=== PATIENT | male | born 1970 | race Two or more races ===

== ENCOUNTER 2019-02-01 00:06 | Inpatient (IN) | payer OTHER ==
[~2019-02-01] VITALS: Ht 172.7 cm; Wt 74.9 kg
[~2019-02-01 00:06] MED LIST: AMOCLA875 PO; CALCA500CH PO; CHLO25 PO; CHLO5 PO; FAMO20 PO; GUAPHELA PO; NAPR550 PO; NAUSEA MED; ONDA8 PO; PHENY100ER PO; PROM25 PO; RXPROM25S PR; TRAZ50 PO; ZOLP5 PO; ZOLP6.25 PO
[2019-02-01 02:13] LABS: BASOPHILS ABSOLUTE AUTO 0.03 K/mm3 (0.00-0.23); BASOPHILS PERCENT AUTO 1 % (0-2); EOSINOPHILS ABSOLUTE AUTO 0.05 K/mm3 (0.00-0.68); EOSINOPHILS PERCENT AUTO 1 % (0-6); Hematocrit 51.6 % (37.0-53.0); Hemoglobin 17.2 g/dL (13.5-17.5); IMMATURE GRAN ABSOLUTE AUTO 0.02 K/mm3 (0.00-0.10); IMMATURE GRAN PERCENT AUTO 1 % (0-1); LYMPHOCYTES ABSOLUTE AUTO 2.62 K/mm3 (0.84-5.20); LYMPHOCYTES PERCENT AUTO 59 % (21-46); MONOCYTES ABSOLUTE AUTO 0.27 K/mm3 (0.16-1.47); MONOCYTES PERCENT AUTO 6 % (4-13); Mean Corpuscular HGB 31.7 pg (26.0-34.0); Mean Corpuscular HGB Conc 33.3 g/dL (31.5-36.5); Mean Corpuscular Volume 95 fL (80-100); Mean Platelet Volume 8.6 fL (9.1-12.4); NEUTROPHILS ABSOLUTE AUTO 1.43 K/mm3 (1.96-9.15); NEUTROPHILS PERCENT AUTO 32 % (41-73); Platelet Count 157 K/mm3 (150-400); RDW Coefficient Variation 14.2 % (11.7-14.2); RDW Standard Deviation 49.1 fL (35.1-46.3); Red Blood Cell Count 5.43 M/mm3 (4.30-5.90); White Blood Cell Count 4.42 K/mm3 (4.00-11.30)
[2019-02-01 02:27] LABS: International Normalized Ratio 0.98; Prothrombin Time Results 10.4 Sec (9.7-11.5)
[2019-02-01 02:36] LABS: Alanine Aminotransfer (ALT/SGP 53 U/L (12-78); Albumin, Blood 4.4 g/dL (3.4-5.0); Albumin/Globulin Ratio 1.1 (0.8-1.8); Alk Phos 73 U/L (50-136); Anion Gap 6 mmol/L (6-16); Aspartate Aminotrans (AST/SGOT 33 U/L (12-37); Bilirubin, Total 0.3 mg/dL (0.1-1.0); Blood Urea Nitrogen 9 mg/dL (8-24); CO2, Blood 30 mmol/L (21-32); Calcium, Blood 8.7 mg/dL (8.5-10.1); Chloride, Blood 108 mmol/L (98-108); Creatinine, Blood 0.82 mg/dL (0.60-1.20); Globulin, Blood 4.1 g/dL (2.2-4.0); Glomerular Filtration Rate >60 (60-); Glucose, Blood 96 mg/dL (70-99); Potassium, Blood 3.7 mmol/L (3.5-5.5); Sodium, Blood 144 mmol/L (136-145); Total Protein, Blood 8.5 g/dL (6.4-8.2)
[2019-02-01 02:40] LABS: Ethanol (Alcohol), Blood, Med 339 mg/dL
[2019-02-01 04:28] LABS: CHOL/HDL RATIO 4.5; Cholesterol 278 mg/dL (50-200); HDL Cholesterol 62 mg/dL (>39); LDL/HDL RATIO 2.3; Low Density Lipoprotein Chol 141 mg/dL (0-110); Triglycerides 376 mg/dL (30-160); Very Low Density Lipoprot Chol 75 mg/dL (6-32)
--- NOTE | 2019-02-01 10:27 | NUR ---
Upon receiving a spiritual care referral, I visited patient. Patient explains about the inability to use of feel the left side of his body or recall details and memories. Patient is tearful and admits to being afraid. I listen empathically, provide emotional support, a calming presence and prayer. Patient responds well and thanks me for the visit.
--- NOTE | 2019-02-01 10:58 | NUR ---
PATIENT REPORTS THAT HE CANNOT FEEL THE LEFT SIDE OF HIS TONGUE MAKING IT HARD TO REMEMBER NOT TO BITE HIS TONGUE. SMALL DRINKS OF WATER GIVEN AND TOLERATED OK. LEFT SIDE TREMORS OBSERVED TO JCE AND LLE. PATIENT IS ALSO NOW REPORTING LOSS OF VISION IN LEFT EYE AND STATES HE IS ANXIOUS AND HAS NAUSEA. NOTIFIED AND RECEIVED A T.O. FOR ZOFRAN.
--- NOTE | 2019-02-01 11:18 | NUR ---
[facility]SP[facility] PICKED UP PATIENT FOR MRI. PATIENT STABLE UPON TRANSPORT AND AGREEABLE TO CARE.
--- NOTE | 2019-02-01 13:26 | NUR ---
echocardiogram with bubble study is completed
--- NOTE | 2019-02-01 14:13 | NUR ---
PATIENT IS RESTING IN BED WITH EYES CLOSED. NO TREMORS OBSERVED DURING REST. HOB ELEVATED, FREQUENT ROUNDING ONGOING.
--- NOTE | 2019-02-01 18:09 | NUR ---
SHIFT SUMMARY: PATIENT HAS BEEN ALERT TO SELF AND SITUATION THIS SHIFT BUT UNABLE TO RECALL HIS BIRTHDAY OR PLACE OF RESIDENCE. ROMANSH IS PATIENT SECOND LANGUAGE BUT HE IS ABLE TO UNDERSTAND INTERACTIONS WITH NURSING STAFF AND FOR THE MOST PART BUT NEEDS REMINDERS THAT HE IS IN THE HOSPITAL AND IN [place], HE THOUGHT HE WAS IN [facility]. PATIENT REPORT LEFT SIDE WEAKNESS AND NUMBNESS AND HAS WEAK HAND GRASP ON THE LEFT HAND AND IS NOT ABLE TO FULLY LIFT HIS LEFT ARM ABOVE HIS HEAD. LEFT SIDE FACIAL DROOP IS ALSO PRESENT. PATIENT ALSO REPORTS LOSS OF VISION IN LEFT EYE. ST SAW PATIENT TODAY AND ORDERED A SOFT DIET WITH REGUALR FLUIDS AND PATIENT IS TOLERATING IT WELL. FLUIDS WERE ENCOURAGED THROUGHOUT SHIFT. PATIENT C/O NAUSEA ON AND OFF THIS SHIFT AND ZOFRAN WAS GIVEN ORDERED. GIRLFRIEND STOPPED BY THIS MORNING BUT NO OTHER FAMILY IS PRESENT. PATIENT DENIES ANY PAIN AND HAS BEEN RESTING THIS SHIFT IN BED.
--- NOTE | 2019-02-01 19:27 | NUR ---
SHIFT CHANGE ASSESSMENT: PATIENT IS AOX3, PLEASANT AND COOPERATIVE. SITTING WATCHING TV. [place] CITIZEN IS CLEAR DISPITE SECOND LANGUAGE. DENIES ANY PAIN OR DICOMFORT. TELE IN PLACE, RUNNING SINUS PER UX LEAD. LEFT SIDE WEAKNESS SEEMS TO HAVE IMRPOVED, PER DAY SHIFT WAS ONLY ABLE TO LIFT ARM MID WAY AND IS NOW TO RAISE SLIGHTLY ABOVE SHOULDER LEVEL. DORSAL FLEXTION AND EXTENTION IS UNEQUAL RIGHT GREATER THEN LEFT. DID NOT MOVE LEFT FOOT. BUT IS ABLE TO LIFT LEG OFF THE BED AND BACK ON, ABLE TO WALK TO THE BATHROOM WITH SMALL AMOUNT OF GAIT DISTURBANCE WHEN LIFTING HIS FOOT. NOT ABLE TO USE LEFT ARM WELL TO NETWORK ENGINEER ADMINISTRATOR WALKER. SPEECH IS CLEAR, MILD DROOPING OF THE LEFT SIDE. DENIES SWALLOWING PROBLEMS OR ANY OTHER CONCERNS, MILD TREMORS NOTED. WILL CONTINUE TO MONITOR CIWA.
--- NOTE | 2019-02-02 06:27 | NUR ---
SHIFT SUMMARY: PATIENT WAS PLEASANT AND COOPERTIVE ALL NIGHT. HE HAD HIS AND KIDS IN FOR A VISIT FOR A SHORT PERIOD OF TIME. SHORTLY AFTER THAT HE RESTED. HE WAS UP AND DOWN A COUPLE TIMES IN THE NIGHT TO URINATE AND HAD LOOSE STOOLS. EACH TIME HE WAS ABLE TO GET HIM SELF OUT OF BED AND AMBULATE IN THE ROOM. HE STILL GAURDING THE LEFT ARM AND HIS LEFT LEG WITH WEAKNESS AND DECREASED IN ROM. HE SLEPT FOR MOST OF THE NIGHT TILL THIS MORNING WHEN HE WAS ABLE TO WAKE UP THIS AM. HIS CIWA WAS NEGATIVE ALL NIGHT, ONLY TREMORS HE HAD WAS WHEN HE TRIED TO LIFT HIS ARM ABOVE HIS HEAD. THEY RESOLVED WHEN HE MOVED THE ARM DOWN. NO OTHER CHANGES OCCURED THROUGOUT THE NIGHT, WILL REPORT TO DAY SHIFT RN.
--- NOTE | 2019-02-02 11:01 | NUR ---
PT STATES SAME SITUATION HAPPENED 2 YRS AGO. DRINKING BINGE. STROKE LIKE SYMPTOMS. LEFT WEAKNESS. W[facility]. 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 HAS BEEN DOING WELL SINCE THIS WEEK. REPEATED DRINKING BINGE. STROKE LIKE SYMPTOMS. STATES FEELING GOES TO ABSENT ON LEFT SIDE. FACE FROM JUST OUT OF L EYE IS ABSENT. STATES RT VISION NORMAL. LEFT IS TUNNEL VISION AND MUST CONCENTRATE TO FOLLOW PEN AT ALL. ALL FEELING ABSENT FROM JUST OUTSIDE OF EMBILICUS TO L SIDE IS ABSENT. LEFT LEG & FOOT & ARM FEELING ABSENT ALSO. JUST DISTAL FROM CENTER LINE. WILL ADVISE DR WHEN SEE. PT A/O DENIES PAIN. PRESSURE. TIGHTNESS. TALKATIVE. RESPECTFUL. H/R REG, NO MURMER NOTED. PER TELE: NSR AT 61. LUNGS CLEAR, RESP EASY, UNLABORED. ON R.A. BT X4 LAST BM TODAY. VOIDS PER SBA WITH FWW TO BATHROOM. BED IN LOW POSITION, CALL LITE IN REACH. CALLS APPROP.
[2019-02-02] MEDS ORDERED: Prilosec Otc20 MG PO (13:18)
[2019-02-02] MEDS ORDERED: ONDA4ODT MM (13:19)
[2019-02-02] MEDS ORDERED: ASPI81CH PO (13:19)
[2019-02-02] MEDS ORDERED: ATOR80 PO (13:19)
--- NOTE | 2019-02-02 13:21 | NUR ---
PT REQUESTING [facility].
--- NOTE | 2019-02-02 14:14 | NUR ---
IV PULLED INTACT. TELE REMOVED. DISCHARGE REVIEWED WITH PT. HE VERBALIZED UNDERSTANDING OF MEDS AND INSTRUCTIONS. PT WHEELED TO DOOR BY VAISHNAVI. [id number]
== END 2019-02-02 14:17 | disposition home health service (06) | DRG 897 ==
LOC: ER 00:06 → MEDS 05:20 → ENPENDDIS 02-02 12:06 → MEDS 02-02 14:17
PROVIDERS: Emergency Medicine; ADMIT Hospitalist
DX: F10.120 Alcohol abuse with intoxication, uncomplicated (principal); Z76.5 Malingerer [conscious simulation]; R53.1 Weakness; R20.0 Anesthesia of skin; F17.210 Nicotine dependence, cigarettes, uncomplicated; E78.5 Hyperlipidemia, unspecified; Z79.82 Long term (current) use of aspirin; Y90.8 Blood alcohol level of 240 mg/100 ml or more
CPT/HCPCS: 36415; 70496; 70498; 70551; 80053; 80061; 82140; 83036; 85025; 85610; 85730; 92610; 93005; 93010; 93306; 96360-59; 97110; 97116; 97162; 97166; 97530; 99285-25; G0480; J1650; J2060; J2405; J7030; Q9967

== ENCOUNTER → 2020-05-29 | Outpatient (CLI) | payer OTHER ==
[~2020-05-29] MED LIST changes: +ASPI81CH PO; +ATOR80 PO; +ONDA4ODT MM; +Prilosec Otc20 MG PO
== END | disposition home or self-care (01) ==
LOC: LAB EV 18:48 → LAB SHORT 18:48
DX: J02.9 Acute pharyngitis, unspecified (principal); Z20.828 Contact with and (suspected) exposure to other viral communicable diseases
CPT/HCPCS: 87081; U0003

== ENCOUNTER 2021-08-20 08:05 | Emergency (ER) | payer OTHER ==
[~2021-08-20] VITALS: Ht 175.3 cm; Wt 83.9 kg
[2021-08-20] MEDS ORDERED: Hydroxyzine HCl50 MG (08:38)
[2021-08-20] MEDS ORDERED: VENLAFAXINE HC225 MG PO (08:38)
[2021-08-20 09:09] LABS: BASOPHILS ABSOLUTE AUTO 0.02 K/mm3 (0.00-0.23); BASOPHILS PERCENT AUTO 0 % (0-2); EOSINOPHILS ABSOLUTE AUTO 0.05 K/mm3 (0.00-0.68); EOSINOPHILS PERCENT AUTO 1 % (0-6); Hematocrit 41.5 % (37.0-53.0); IMMATURE GRAN ABSOLUTE AUTO 0.02 K/mm3 (0.00-0.10); IMMATURE GRAN PERCENT AUTO 0 % (0-1); LYMPHOCYTES ABSOLUTE AUTO 1.66 K/mm3 (0.84-5.20); LYMPHOCYTES PERCENT AUTO 24 % (21-46); MONOCYTES ABSOLUTE AUTO 0.69 K/mm3 (0.16-1.47); MONOCYTES PERCENT AUTO 10 % (4-13); Mean Corpuscular HGB 30.8 pg (26.0-34.0); Mean Corpuscular HGB Conc 36.1 g/dL (31.5-36.5); Mean Corpuscular Volume 85 fL (80-100); Mean Platelet Volume 9.4 fL (9.1-12.4); NEUTROPHILS ABSOLUTE AUTO 4.36 K/mm3 (1.96-9.15); NEUTROPHILS PERCENT AUTO 64 % (41-73); Platelet Count 94 K/mm3 (150-400); RDW Coefficient Variation 12.1 % (11.7-14.2); RDW Standard Deviation 37.4 fL (35.1-46.3); Red Blood Cell Count 4.87 M/mm3 (4.30-5.90)
[2021-08-20 09:20] LABS: Alanine Aminotransfer (ALT/SGP 42 U/L (12-78); Albumin, Blood 3.9 g/dL (3.4-5.0); Albumin/Globulin Ratio 1.1 (0.8-1.8); Alk Phos 63 U/L (50-136); Anion Gap 8 mmol/L (6-16); Aspartate Aminotrans (AST/SGOT 36 U/L (12-37); Blood Urea Nitrogen 10 mg/dL (8-24); Bun/Creatinine Ratio 14.3 (12.0-20.0); CO2, Blood 28 mmol/L (21-32); Calcium, Blood 8.7 mg/dL (8.5-10.1); Chloride, Blood 95 mmol/L (98-108); Globulin, Blood 3.6 g/dL (2.2-4.0); Glomerular Filtration Rate >60 (60-); Glucose, Blood 113 mg/dL (70-99); Potassium, Blood 3.2 mmol/L (3.5-5.5); Sodium, Blood 131 mmol/L (136-145); Total Protein, Blood 7.5 g/dL (6.4-8.2)
[2021-08-20 09:45] LABS: Source, Urine Clean Catch
[2021-08-20] MEDS ORDERED: OMEP20ER (10:08)
[2021-08-20 10:58] LABS: Ethanol (Alcohol), Blood, Med <3 mg/dL
[2021-08-20 11:05] LABS: Appearance, Urine Clear (Clear); Bilirubin, Urine Neg (Neg); Blood, Urine Neg (Neg); Color, Urine Yellow (P-Yellow); Glucose Qualitative, Urine Neg (Neg); Ketones, Urine Neg (Neg); Leukocyte Esterase, Urine Neg (Neg); Nitrite, Urine Neg (Neg); Protein, Urine Neg (Neg); Urobilinogen, Urine NORM (Normal)
[2021-08-20 11:34] LABS: U Amphetamine Screen Not Detected; U Barbituate Screen Not Detected; U Benzodiazapine Screen Not Detected; U Buprenorphine Screen Not Detected; U Cannabinoids Screen Not Detected; U Cocaine Screen Not Detected; U Methadone Screen Not Detected; U Methamphetamine Screen Not Detected; U Opiates Screen Not Detected; U Oxycodone Screen Not Detected; U Phencyclidine Screen Not Detected; U Propoxyphene Screen Not Detected
[2021-08-20] MEDS ORDERED: QUET25 PO (11:58)
== END 2021-08-20 12:47 | disposition home or self-care (01) ==
LOC: ER 08:05
PROVIDERS: Physician Assistant
DX: R44.0 Auditory hallucinations (principal); R44.1 Visual hallucinations; F17.210 Nicotine dependence, cigarettes, uncomplicated; Z79.899 Other long term (current) drug therapy
CPT/HCPCS: 36415; 80053; 81003; 85025; A9270; G0480

== ENCOUNTER 2022-10-13 10:42 | Day surgery (SDC) | payer OTHER ==
[~2022-10-13] VITALS: Ht 172.7 cm; Wt 83.8 kg
[~2022-10-13 10:42] MED LIST changes: +Hydroxyzine HCl50 MG; +OMEP20ER; +QUET25 PO; +VENLAFAXINE HC225 MG PO
[2022-10-13] MEDS ORDERED: ALBU2.5V5 (11:29)
[2022-10-13] MEDS ORDERED: ASPI81CH (11:29)
[2022-10-13] MEDS ORDERED: IBUP100S (11:29)
[2022-10-13] MEDS ORDERED: ONDANSETRON4 MG/2 ML (11:29)
[2022-10-13] MEDS ORDERED: OMEP20ER (11:29)
== END 2022-10-13 14:16 | disposition home or self-care (01) ==
LOC: ORSCSDS 10:42
PROVIDERS: Student in an Organized Health Care Education/Training Program
PROC: 0DBN8ZX Excision of Sigmoid Colon, Via Natural or Artificial Opening Endoscopic, Diagnostic (ICD-10-PCS; principal; 2022-10-13 12:00)
PROC: 0DBM8ZX Excision of Descending Colon, Via Natural or Artificial Opening Endoscopic, Diagnostic (ICD-10-PCS; principal; 2022-10-13 12:00)
PROC: 0DBL8ZX Excision of Transverse Colon, Via Natural or Artificial Opening Endoscopic, Diagnostic (ICD-10-PCS; principal; 2022-10-13 12:00)
PROC: 0DBK8ZX Excision of Ascending Colon, Via Natural or Artificial Opening Endoscopic, Diagnostic (ICD-10-PCS; principal; 2022-10-13 12:00)
DX: Z12.11 Encounter for screening for malignant neoplasm of colon (principal); D12.2 Benign neoplasm of ascending colon; D12.3 Benign neoplasm of transverse colon; F17.210 Nicotine dependence, cigarettes, uncomplicated; Z79.899 Other long term (current) drug therapy
CPT/HCPCS: 88305; C1889; J0330; J0461; J2250; J2405; J2704; J7120; Q9968

== ENCOUNTER → 2025-02-10 | Outpatient (CLI) | payer OTHER ==
[~2025-02-10] MED LIST changes: +ALBU2.5V5; +ASPI81CH; +Amoxicillin875 MG PO; +IBUP100S; +ONDANSETRON4 MG/2 ML; +Vibramycin100 MG PO
== END ==
LOC: LAB SHORT 13:02 → LAB 13:02
DX: L02.01 Cutaneous abscess of face (principal)
CPT/HCPCS: 87070; 87075; 87077; 87147; 87186; 87205

== ENCOUNTER 2025-02-11 03:38 | Emergency (ER) | payer OTHER ==
[~2025-02-11] VITALS: Ht 172.7 cm; Wt 82.5 kg
[~2025-02-11 03:38] MED LIST changes: -Amoxicillin875 MG PO; -Vibramycin100 MG PO
[2025-02-11] MEDS ORDERED: CeFAZolin Sodium 2,000 MG in NS 100 ML IV ONE (04:05)
[2025-02-11] MEDS ORDERED: Ketorolac Tromethamine 15mg Vial IV ONE (04:05)
[2025-02-11 04:15] LABS: BASOPHILS ABSOLUTE AUTO 0.03 K/mm3 (0.00-0.23); BASOPHILS PERCENT AUTO 0 % (0-2); EOSINOPHILS ABSOLUTE AUTO 0.15 K/mm3 (0.00-0.68); EOSINOPHILS PERCENT AUTO 2 % (0-6); Hematocrit 39.5 % (37.0-53.0); Hemoglobin 14.0 g/dL (13.5-17.5); IMMATURE GRAN ABSOLUTE AUTO 0.02 K/mm3 (0.00-0.10); IMMATURE GRAN PERCENT AUTO 0 % (0-1); LYMPHOCYTES ABSOLUTE AUTO 1.63 K/mm3 (0.84-5.20); LYMPHOCYTES PERCENT AUTO 16 % (21-46); MONOCYTES ABSOLUTE AUTO 0.75 K/mm3 (0.16-1.47); MONOCYTES PERCENT AUTO 7 % (4-13); Mean Corpuscular HGB Conc 35.4 g/dL (31.5-36.5); Mean Corpuscular Volume 86 fL (80-100); NEUTROPHILS ABSOLUTE AUTO 7.67 K/mm3 (1.96-9.15); NEUTROPHILS PERCENT AUTO 75 % (41-73); NRBC ABSOLUTE 0.00 K/mm3 (0.00-0.02); NRBC Auto 0.0 /100 WBC (0.0-0.2); Platelet Count 202 K/mm3 (150-400); RDW Coefficient Variation 12.8 % (11.7-14.2); RDW Standard Deviation 40.2 fL (35.1-46.3)
[2025-02-11 04:36] LABS: Alanine Aminotransfer (ALT/SGP 19.0 U/L (12-78); Albumin, Blood 3.9 g/dL (3.4-5.0); Albumin/Globulin Ratio 1.1 (0.8-1.8); Anion Gap 8.0 mmol/L (3-11); Aspartate Aminotrans (AST/SGOT 9.0 U/L (12-37); Bilirubin, Total 0.4 mg/dL (0.1-1.0); Blood Urea Nitrogen 7.0 mg/dL (8-24); CO2, Blood 26.0 mmol/L (21-32); Calcium, Blood 8.4 mg/dL (8.5-10.1); Chloride, Blood 106.0 mmol/L (98-108); Creatinine, Blood 0.79 mg/dL (0.60-1.20); Globulin, Blood 3.7 g/dL (2.2-4.0); Glucose, Blood 135.0 mg/dL (70-99); Potassium, Blood 3.2 mmol/L (3.5-5.5); Sodium, Blood 137.0 mmol/L (136-145); Total Protein, Blood 7.6 g/dL (6.4-8.2)
[2025-02-11] MEDS ORDERED: Amoxicillin875 MG PO (05:11)
[2025-02-11] MEDS ORDERED: Vibramycin100 MG PO (05:11)
[2025-02-11 08:19] VITALS: BP 106/78
== END 2025-02-11 08:20 | disposition home or self-care (01) ==
LOC: ER 03:38
PROVIDERS: Emergency Medicine
DX: K12.2 Cellulitis and abscess of mouth (principal); F17.210 Nicotine dependence, cigarettes, uncomplicated; Z79.82 Long term (current) use of aspirin; Z79.899 Other long term (current) drug therapy
CPT/HCPCS: 70487; 80053; 85025; 96365-59; 96375-59; 99283-25; A9270; J0690; J1885; Q9967

== ENCOUNTER 2025-05-26 07:53 | Day surgery (SDC) | payer OTHER ==
[~2025-05-26] VITALS: Ht 172.7 cm; Wt 81.6 kg
[~2025-05-26 07:53] MED LIST changes: +Amoxicillin875 MG PO; +Vibramycin100 MG PO
[2025-05-26] MEDS ORDERED: VENL150ER (08:29)
[2025-05-26 10:05] VITALS: BP 119/92
== END 2025-05-26 10:28 | disposition home or self-care (01) ==
LOC: ORSCSDS 07:53
PROVIDERS: Specialist
PROC: 0DB68ZX Excision of Stomach, Via Natural or Artificial Opening Endoscopic, Diagnostic (ICD-10-PCS; principal; 2025-05-26 09:45)
PROC: 0DB98ZX Excision of Duodenum, Via Natural or Artificial Opening Endoscopic, Diagnostic (ICD-10-PCS; principal; 2025-05-26 09:45)
DX: R11.2 Nausea with vomiting, unspecified (principal); Z86.0101 Personal history of adenomatous and serrated colon polyps; R19.4 Change in bowel habit
CPT/HCPCS: 88305; 88342; J2704; J7120